=== PATIENT | male | born 1995 | race Caucasian/White ===

== ENCOUNTER 2018-02-25 10:43 | Emergency (ER) | payer MEDICAID ==
[~2018-02-25] VITALS: Ht 162.6 cm; Wt 63.0 kg
[2018-02-25 10:47] VITALS: BP 139/84; Ht 162.6 cm; Wt 63.0 kg
== END 2018-02-25 11:18 | disposition home or self-care (01) ==
LOC: ED 10:43
DX: L72.8 Other follicular cysts of the skin and subcutaneous tissue (principal)